=== PATIENT | female | born 1945 | race Caucasian/White ===

== ENCOUNTER 2019-08-05 16:04 | Inpatient (IN) | payer SELFPAY ==
[~2019-08-05] VITALS: Ht 144.8 cm; Wt 57.6 kg
[2019-08-05 16:07] VITALS: BP 138/68
--- NOTE | 2019-08-05 16:20 | NUR ---
WAIT AT LOBBY.
--- NOTE | 2019-08-05 16:30 | NUR ---
PT TAKEN TO ER BED 09
--- NOTE | 2019-08-05 17:03 | NUR ---
C/O N/V & ABDOMINAL PAIN 10/10 WITH HEADACHE AND GENERAL WEAKESS X TODAY. BOWEL SOUNDS ACTIVE IN ALL 4 QUADRANTS. ABDOMEN ROUND AND SOFT, TENDER TO TOUCH. DENIES DIARRHEA. NEURO INTACT- PUPILS PERRLA, AMBULATES WITH ASSISTANCE, MOVES ALL 4 EXTREMETIES WITHOUT DIFFICUTLY. PT ALERT AND AWAKE, FAMILY BEDSIDE, BED IS DOWN, LOCKED, BED RAIL X 1, ERMD TO SEE PT. BS 167 UPON TRIAGE MED HX: DM, HTN, VERTIGO
--- NOTE | 2019-08-05 17:04 | NUR ---
IV INSERTED AND LABS DRAWN BEDSIDE
[2019-08-05] MEDS ORDERED: NACL 0.9% 1,000 ML IV SCH ×2 (17:23→20:02)
[2019-08-05] MEDS ORDERED: NACL 0.9% 1,000 ML IV ONE (17:23)
[2019-08-05] MEDS ORDERED: KETOROLAC 30 MG/ML VIAL IVP ONE (17:25)
[2019-08-05] MEDS ORDERED: MORPHINE SULFATE 2 MG/ML SYR IVP ONE (17:25)
[2019-08-05] MEDS ORDERED: ONDANSETRON 4 MG/2 ML VIAL IVP ONE (17:25)
--- NOTE | 2019-08-05 17:28 | NUR ---
PT AT CT VIA WHEELCHAIR
--- NOTE | 2019-08-05 17:39 | NUR ---
PT RETURNED FROM CT
[2019-08-05 17:42] LABS: BASOPHILS % (AUTO) 0.2 % (0.0-2.0); EOSINOPHILS % (AUTO) 0.3 % (0.0-4.0); HEMATOCRIT 45.9 % (36-48); HEMOGLOBIN 15.6 g/dL (12.0-16.0); LYMPHOCYTES # (AUTO) 0.7 K/uL (2.5-16.5); LYMPHOCYTES % (AUTO) 9.3 % (20.5-51.1); MEAN CORPUSCULAR HEMOGLOBIN 29 pg (27-31); MEAN CORPUSCULAR HGB CONC 34 g/dL (33-37); MEAN CORPUSCULAR VOLUME 85.3 fL (80-94); MONOCYTES # (AUTO) 0.7 K/uL (0.8-1.0); MONOCYTES % (AUTO) 9.2 % (1.7-9.3); PLATELET COUNT (AUTO) 320 K/uL (140-450); RED BLOOD CELL COUNT(AUTO) 5.38 MIL/uL (4.20-5.40); RED CELL DISTRIBUTION WIDTH 14.1 % (11.6-13.7); WHITE BLOOD COUNT (AUTO) 7.4 K/uL (4.8-10.8)
[2019-08-05 17:43] LABS: APPEARANCE,URINE CLEAR (CLEAR); BILIRUBIN,URINE NEGATIVE (NEGATIVE); BLOOD, URINE NEGATIVE (NEGATIVE); COLOR,URINE YELLOW (YELLOW); LEUKOCYTE ESTERASE ,URINE NEGATIVE (NEGATIVE); NITRITE, URINE NEGATIVE (NEGATIVE); UGLUCOSE NEGATIVE (NEGATIVE)
--- NOTE | 2019-08-05 17:51 | NUR ---
VS STABLE AT THIS TIME. PT ALERT AND AWAKE. FAMILY BEDSIDE
--- NOTE | 2019-08-05 17:51 | NUR ---
MEDICATIONS ADMINISTERED BY LI CASTILLO
--- NOTE | 2019-08-05 18:30 | NUR ---
NADR TO MEDICATIONS. PT ALERT AND AWAKE. FAMILY BEDSIDE
[2019-08-05 18:38] LABS: ALBUMIN 3.9 g/dL (3.4-5.0); ANION GAP 15.1 (8-16); ASPARTATE AMINOTRANSFERASE 24 U/L (15-37); CARBON DIOXIDE 28.8 mmol/L (21-32); CHLORIDE 98 mmol/L (98-107); GLUCOSE 157 mg/dL (74-106); LIPASE 138 U/L (73-393); SODIUM SERUM 139 mmol/L (136-145); TOTAL BILIRUBIN 0.7 mg/dL (0.0-1.0); UREA NITROGEN, BLOOD 23 mg/dL (7-18)
[2019-08-05 19:02] LABS: AMYLASE 48 U/L (25-115)
--- NOTE | 2019-08-05 19:05 | NUR ---
PTS SON ASSISTED PT TO RESTROOM
--- NOTE | 2019-08-05 19:05 | NUR ---
REPORT GIVEN TO MILES CASTILLO, TRANSFER OF CARE AT THIS TIME
[2019-08-05] MEDS ORDERED: POTASSIUM CHL 40 MEQ/ D5-1/2NS 1,000 ML IV ONE (19:10)
[2019-08-05 19:35] LABS: MAGNESIUM 1.8 mg/dL (1.8-2.4)
--- NOTE | 2019-08-05 19:51 | NUR ---
Dr. Reece examining patient.
[2019-08-05] MEDS ORDERED: HYDROcodone/APAP 7.5/325 MG 1 TAB PO PRN (20:05)
[2019-08-05] MEDS ORDERED: ACETAMINOPHEN 325 MG TAB PO PRN (20:05)
[2019-08-05] MEDS ORDERED: DOCUSATE SODIUM 100 MG GELCAP PO PRN (20:05)
[2019-08-05] MEDS ORDERED: ONDANSETRON 4 MG/2 ML VIAL IM/IVP PRN (20:05)
--- NOTE | 2019-08-05 20:12 | NUR ---
Dr. De Jesus examining patient.
[2019-08-05] MEDS ORDERED: AMLO-143 PO (20:28)
[2019-08-05] MEDS ORDERED: HYDR25TA32 PO (20:28)
[2019-08-05] MEDS ORDERED: METF1000 PO (20:28)
[2019-08-05] MEDS ORDERED: FURO-570 PO (20:28)
[2019-08-05] MEDS ORDERED: PRAV40TA1 PO (20:28)
[2019-08-05] MEDS ORDERED: LYR50 PO (20:28)
[2019-08-05 20:30] LABS: POTASSIUM 2.9 mmol/L (3.5-5.1)
[2019-08-05 20:33] LABS: PROTHROMBIN TIME 8.8 secs (10.8-13.4)
[2019-08-05 20:36] LABS: THYROID STIMULATING HORMONE 1.02 uIU/mL (0.34-3.74)
--- NOTE | 2019-08-05 20:44 | NUR ---
Patient will be admitted to care of [facility]. Admited to TELE. Will go to room 127A. Belongings list completed. Report to CARISA CASTILLO.
--- NOTE | 2019-08-05 20:45 | NUR ---
RECEIVED PATIENT FROM ED VIA GURNEY WITH FAMILY MEMBERS AT BEDSIDE. PT IS AWAKE, ALERT AND AMBULATORY. BEDSIDE REPORT GIVEN FROM ED NURSE MILES. NO SOB OR DISTRESS NOTED. ON ROOM AIR. PT SPEAKS KOREAN. IV ACCESS ON RIGHT AC, PATENT, INTACT AND INFUSING WELL. SKIN INTACT. INITIAL ASSESSMENT DONE. VITAL SIGNS TAKEN. MRSA SWAB DONE AND TAKEN TO LAB. PT IS ON TELE MONITORING. BED IN LOW. BOARD UPDATED. ORIENTED TO ROOM. CALL LIGHT WITHIN PATIENT REACH. WILL CONTINUE TO MONITOR PATIENT.
[2019-08-05] MEDS ORDERED: AMLO10TA4 PO (20:50)
[2019-08-05] MEDS ORDERED: ORE25 PO (20:50)
[2019-08-05] MEDS ORDERED: [UNRECOGNIZED DRUG - CODE] MC (20:52)
[2019-08-05] MEDS ORDERED: INSULIN LISPRO SLIDING SCALE 100 UNITS/ML VIAL SUBQ PRN (22:25)
[2019-08-05] MEDS ORDERED: DEXTROSE 50% 50 ML SYR IVP PRN (22:25)
[2019-08-05] MEDS: metFORMIN 500 MG TAB PO SCH (22:35)
--- NOTE | 2019-08-05 23:15 | NUR ---
NG TUBE INSERTION DONE WITH HELP FROM CHARGE NURSE. ON LOW INTERMITTENT SUCTIONING. NO SOB OR DISTRESS NOTED. WILL CONTINUE TO MONITOR PATIENT.
[2019-08-06] VITALS (7 sets, daily range): BP systolic 118–134; BP diastolic 53–81
--- NOTE | 2019-08-06 00:30 | NUR ---
VITALS TAKEN AT THIS TIME. WILL CONTINUE TO MONITOR PATIENT.
--- NOTE | 2019-08-06 01:15 | NUR ---
CHEST X-RAY DONE BY RADIOLOGY TO VERIFY PLACEMENT OF NG TUBE.
--- NOTE | 2019-08-06 04:15 | NUR ---
CHEST X-RAY RESULT OF : Enteric tube distal tip is below the diaphragm and inferior to the field of view. REPORTED TO DR. UP AND HE SAID TO PULL OUT TUBE SLIGHTLY AND HE WILL PUT IN A NEW ORDER FOR CHEST X-RAY TO VERIFY PLACEMENT.
[2019-08-06 06:08] LABS: BASOPHILS % (AUTO) 0.1 % (0.0-2.0); EOSINOPHILS % (AUTO) 0.5 % (0.0-4.0); HEMATOCRIT 39.4 % (36-48); HEMOGLOBIN 13.3 g/dL (12.0-16.0); LYMPHOCYTES # (AUTO) 0.9 K/uL (2.5-16.5); LYMPHOCYTES % (AUTO) 15.6 % (20.5-51.1); MEAN CORPUSCULAR HEMOGLOBIN 29 pg (27-31); MEAN CORPUSCULAR HGB CONC 34 g/dL (33-37); MEAN CORPUSCULAR VOLUME 85.6 fL (80-94); MONOCYTES # (AUTO) 0.8 K/uL (0.8-1.0); MONOCYTES % (AUTO) 14.1 % (1.7-9.3); NEUTROPHILS % (AUTO) 69.7 % (42.2-75.2); PLATELET COUNT (AUTO) 257 K/uL (140-450); RED BLOOD CELL COUNT(AUTO) 4.61 MIL/uL (4.20-5.40); WHITE BLOOD COUNT (AUTO) 5.8 K/uL (4.8-10.8)
[2019-08-06] MEDS: BLOOD GLUCOSE MONITORING 1 DEV DEV FS SCH ×4 (06:25→21:00)
[2019-08-06 06:33] LABS: ANION GAP 10.9 (8-16); CARBON DIOXIDE 28.6 mmol/L (21-32); CHLORIDE 104 mmol/L (98-107); CREATININE 0.8 mg/dL (0.6-1.3); GLUCOSE 179 mg/dL (74-106); POTASSIUM 3.5 mmol/L (3.5-5.1); SODIUM SERUM 140 mmol/L (136-145); UREA NITROGEN, BLOOD 14 mg/dL (7-18)
[2019-08-06 06:41] LABS: CHOL/HDL RATIO 4.8 (1-4.5); MAGNESIUM 1.6 mg/dL (1.8-2.4); PHOSPHORUS 2.7 mg/dL (2.5-4.9)
[2019-08-06] MEDS: DEXT 5% / NACL 0.9% 500 ML IV SCH ×2 (06:44→12:21)
--- NOTE | 2019-08-06 07:00 | NUR ---
NG TUBE GASTRIC DRAINAGE NOTED AT 100ML AT THIS TIME. LIGHT BROWN IN COLOR.
--- NOTE | 2019-08-06 07:19 | NUR ---
RECEIVED REPORT FROM DINING CAR WAITER/WAITRESS RN FOR CONTINUITY OF CARTE. PT IS AAOX4, AMBULATORY BUT ON BEDREST DUE TO NG-TUBE INSERTION. PT DENIES PAIN OR SOB. PT SKIN IS INTACT. PT NPO EXCEPT MEDS. EXPLAINED POC TO PT AND DAUGHTER AT BEDSIDE AND THEY BOTH VERBALIZED UNDERSTANDING. BED IN LOW POSITION, CALL LIGHT WITHIN REACH. WILL CONTINUE TO ROUND FREQUENTLY ON PT.
--- NOTE | 2019-08-06 07:25 | NUR ---
PT IN STABLE CONDITION. CALL LIGHT WITHIN PATIENT REACH. ENDORSED TO AM SHIFT NURSE FOR CONTINUITY OF CARE.
--- NOTE | 2019-08-06 08:15 | NUR ---
PATIENT HAS BEEN SCREENED AND CATEGORIZED MODERATE NUTRITION RISK. PATIENT WILL BE SEEN WITHIN 3-5 DAYS OF ADMISSION. 08/08/19 08/10/[address]
[2019-08-06] MEDS ORDERED: HYDROCHLOROTHIAZIDE 25 MG TAB PO SCH (09:00)
[2019-08-06] MEDS ORDERED: ATORVASTATIN 20 MG TAB PO SCH (09:00)
[2019-08-06] MEDS ORDERED: PREGABALIN 50 MG CAP PO SCH (09:00)
[2019-08-06] MEDS ORDERED: amLODIPine 5 MG TAB PO SCH (09:00)
--- NOTE | 2019-08-06 09:40 | NUR ---
ADMINISTERED MORNING MEDS TO PT. PT TOLERATED WELL. WILL CONTINUE TO ROUND FREQUENTLY ON PT. BED IN LOW POSITION, CALL LIGHT WITHIN REACH. WILL CONTINUE TO ROUND FREQUENTLY ON PT. BED IN LOW POSITION, CALL LIGHT WITHIN REACH. FAMILY AT BEDSIDE.
[2019-08-06] MEDS: metFORMIN 500 MG TAB PO SCH ×2 (09:57→21:00)
[2019-08-06] MEDS ORDERED: BETAHISTINE PO SCH (11:00)
--- NOTE | 2019-08-06 11:37 | NUR ---
PT RESTING IN BED WITH FAMILY AT BEDSIDE. WILL CONTINUE TO ROUND FREQUENTLY ON PT. BED IN LOW POSITION, CALL LIGHT WITHIN REACH.
[2019-08-06] MEDS ORDERED: DEXT 5% /NACL 0.9% 1,000 ML IV SCH ×2 (13:05)
--- NOTE | 2019-08-06 13:50 | NUR ---
PT SLEEPING IN BED. ALL NEEDS MET. FAMILY AT BEDSIDE. WILL CONTINUE TO ROUND FREQUENTLY ON PT.
[2019-08-06] MEDS ORDERED: PANTOPRAZOLE 40 MG INJ VIAL IVP SCH (14:00)
[2019-08-06] MEDS ORDERED: MAG SULF 2000 MG/WATER PREMIX 50 ML IV SCH (14:00)
--- NOTE | 2019-08-06 14:54 | NUR ---
Lead Customer Service Representative Assessment/Discharge Plan: Name: Katerin Martinez Home Relationship: daughter in law Pre-Admission Living Arrangements: Lives with Other Other: daughter: Rachel Leroy Prior ADL Independent Current Home Health Name/Tel: N/A Current DME/02 Name/Tel: blood glucose monitor Current Hospice Name/Tel: N/A Current Dialysis Name/Tel: N/A Healthcare Decision Maker: Patient Advance Directive No Information Taught: Advance Directive Person Taught: Family Patient Teaching Tools: Computer Generated Print Verbal Factors Affecting Learning: None Participation Level: Active Evaluation: Gestures Understanding Verbalizes Understanding Educator: GARRICK Quiñones Discipline: Case Mgt/Social Svcs Tentative Discharge Plan Summary: Patient is a 74 year old female admitted for ileus, hypokalemia, and dehydration. I met with patient and patient's family (patient's daughter Alecia, patient's son Mitesh Thorne, and patient's daughter in law Katerin Martinez) at bedside. Patient speaks Namibian. Alecia speaks Namibian. Mitesh and Katerin speak Sami and [place]ian. Patient lives at home with her daughter Rachel Leroy and plans to return home upon discharge. [place] [facility] [place], [place] for medical care. She does not have any difficulty filling her prescriptions. Patient's family assist her with transportation. Patient does not have an existing Advance Directive. I provided patient and patient's family with education on Advance Directive and blank form. Lead Customer Service Representative and/or Housekeeping Assistant will follow up as needed. Signature: GARRICK Quiñones Date: Aug 06, 2019
--- NOTE | 2019-08-06 15:41 | NUR ---
PT SLEEPING. WILL CONTINUE TO ROUND FREQUENTLY ON PT.
--- NOTE | 2019-08-06 17:34 | NUR ---
PT RESTING. WILL CONTINUE TO ROUND FREQUENTLY ON PT,.
--- NOTE | 2019-08-06 17:46 | NUR ---
PT DAUGHTER HAD PAPERWORK READY AND FILLED OUT FOR FITZ MANAGER RETENTION. FITZ LEFT FOR THE DAY SO I TOOK ALL PAPERWORK AND MADE COPIES OF PT IDENTIFICATION CARD. ALL PAPERWORK GIVEN TO ME BY FAMILY WAS PLACED IN PT CHART AND COPIES WERE GIVEN TO FAMILY. EXTENSION TO PIT SHOVELER DEPARTMENT WAS GIVEN TO PT ALONG WITH FITZ'S NAME SO FAMILY CAN FOLLOW-UP.
[2019-08-06] MEDS ORDERED: [UNRECOGNIZED DRUG - CODE] PO (18:15)
[2019-08-06] MEDS ORDERED: DOCU-299 PO (18:15)
[2019-08-06] MEDS ORDERED: INFLUENZA VACCINE QUAD 0.5 ML SYR IMVAC PRN (19:50)
[2019-08-06] MEDS ORDERED: PNEUMOCOCCAL VACCINE 23 MCG/0.5 ML VIAL IMVAC SCH (19:50)
--- NOTE | 2019-08-06 19:54 | NUR ---
ENDORSED PT TO COLLECTIONS ATTORNEY NURSE [place] FOR CONTINUITY OF CARE. PT IN STABLE CONDITION AT THIS TIME AND BEING DISCHARGED.
--- NOTE | 2019-08-06 19:55 | NUR ---
Received endorsement from AM shift RN; patient A/Ox4, able to make needs known, Martiniquais speaking, ambulatory. Patient talking with relatives; introduced self, updated board. No SOB or distress noted, on room air. NG tube noted. IV site noted on right antecubital, saline locked. Skin intact. Bed in the lowest position, call light with reach. Initial assessment done. Will continue to monitor.
--- NOTE | 2019-08-06 20:40 | NUR ---
Discharge packet signed and copy given to the patient. Patient verbalized understanding regarding new medication and need for follow-up appointment. Pneumonia and Flu vaccines administered. IV removed, tip intact. ID band removed. Patient placed in pink gown. Patient left unit via wheelchair, accompanied by FISH CUTTING MACHINE OPERATOR and family members. Patient vitals stable upon discharge.
[2019-08-07] MEDS ORDERED: PANTOPRAZOLE 40 MG INJ VIAL IVP SCH (09:00)
--- NOTE | 2019-08-08 06:54 | NUR ---
Late entry. Confirmed with RN that 0.9 NS IV 1000ml completed at 1850.
== END 2019-08-06 20:40 | disposition home or self-care (01) | DRG 390 ==
LOC: MED 16:04 → MMU 20:07
PROVIDERS: ADMIT General Practice; ATTEND General Practice
PROC: 0D9670Z Drainage of Stomach with Drainage Device, Via Natural or Artificial Opening (ICD-10-PCS; principal; 2019-08-06)
PROC: 3E0234Z Introduction of Serum, Toxoid and Vaccine into Muscle, Percutaneous Approach (ICD-10-PCS; 2019-08-06)
PROC: 3E02340 Introduction of Influenza Vaccine into Muscle, Percutaneous Approach (ICD-10-PCS; 2019-08-06)
DX: K56.7 Ileus, unspecified (principal); E86.0 Dehydration; E87.6 Hypokalemia; E78.5 Hyperlipidemia, unspecified; I11.9 Hypertensive heart disease without heart failure; K57.30 Diverticulosis of large intestine without perforation or abscess without bleeding; E83.42 Hypomagnesemia; E11.40 Type 2 diabetes mellitus with diabetic neuropathy, unspecified; K56.600 Partial intestinal obstruction, unspecified as to cause; Z90.49 Acquired absence of other specified parts of digestive tract; Z23 Encounter for immunization
CPT/HCPCS: 36415; 71045; 74018; 74250; 80048; 80053; 81003; 82150; 82948; 82977; 83036; 83690; 83735; 84100; 84443; 85025; 85610; 85730; 87081; 90732; 96365; 96375; 97116; 97161-GP; 97530; 99285; C9113; J1815; J1885; J2270; J2405; J3475; J7030; J7042; Q0092